=== PATIENT | female | born 1975 | race Caucasian/White ===

== ENCOUNTER 2017-07-12 08:22 | Day surgery (SDC) | payer OTHER ==
--- NOTE | 2017-07-04 16:09 | HP ---
PREOP HISTORY AND PHYSICAL: DATE OF SURGERY: 07/12/17 [facility] CHIEF COMPLAINT: Numbness and tingling in the left hand. HISTORY OF PRESENT ILLNESS: Mikayla is a 41-year-old woman who has numbness and tingling in the median nerve distribution of her left hand for the past year, but recently getting worse. She recently had a nerve conduction study done by Dr. Montoya who diagnosed her with left carpal tunnel syndrome. She presents for a left carpal tunnel release. PAST MEDICAL HISTORY: Positive for history of spina bifida. PAST SURGICAL HISTORY: Appendectomy, tonsillectomy, and spinal surgery as an . MEDICATIONS: 1. Medrol 4 mg as needed. 2. Gabapentin 900 mg p.o. t.i.d. 3. Amitriptyline 50 mg p.o. q.h.s. 2 pills. 4. Baclofen 20 mg 1 p.o. t.i.d. 5. Aleve 440 mg p.o. b.i.d. p.r.n. ALLERGIES: PENICILLIN, RED DYE, and BENADRYL. FAMILY HISTORY: Peripheral vascular disease, congestive heart failure, COPD, schizophrenia, and heart disease. SOCIAL HISTORY: She is unemployed. She admits to tobacco use. Rarely consumes alcohol. Does not regularly exercise. REVIEW OF SYSTEMS: Positive for cough, sore throat, fever and chills from a recent upper respiratory infection, diarrhea, chronic back pain, weakness, fatigue. Otherwise, negative for cephalic, cardiovascular, respiratory, gastrointestinal, genitourinary, other musculoskeletal, skin, neurologic, endocrine, and hematologic symptoms. PHYSICAL EXAMINATION GENERAL: She is a healthy-appearing and very pleasant woman in minimal distress at rest. VITAL SIGNS: She is 5 feet 4 inches, weighs 139 pounds, pulse 80, blood pressure 122/82, and temperature is 97. HEENT: Exam is unremarkable except for some poor dentition. She has some mild pain with range of motion of her neck. She has concentric eye movements. LUNGS: Clear to auscultation. Good inspiratory effort. No wheezing. CARDIAC: Regular rate and rhythm without murmur. PERIPHERAL VASCULAR: She has palpable pulses and no peripheral edema. EXTREMITIES: She has a positive Tinel's sign of the median nerve at the wrist. Some weakness with thumb abduction. Slight thenar wasting. She has good range of motion of her wrist. NEUROLOGIC: She is alert and oriented without focal deficits. IMPRESSION: Left carpal tunnel syndrome. PLAN: Left carpal tunnel release. The surgical procedure, risks and benefits were explained to the patient today and she agrees to proceed. I will see her back in followup in approximately 10 days postop. [id number]/[facility] #: [id number] MTDD
[~2017-07-12 08:22] MED LIST: Acetaminophen TAB* 325 MG PO PRN; Buffered Lidocaine 0.9% SYRIN* 5 ML/SYR SYRINGE INTRADERM ONE; HYDROcodone/ACETAMIN 5-325 MG* 1 TAB PO PRN; Naloxone* 0.4 MG/ML 1 ML VIAL IV PRN; Ondansetron INJ* 2 MG/ML VIAL IV PRN
[2017-07-12] MEDS ORDERED: Midazolam* 1 MG/ML 2 ML VIAL (2 MG) ONE (09:46)
[2017-07-12] MEDS ORDERED: fentaNYL* 50 MCG/ML 2 ML VIAL (100 MCG VIAL) ONE (09:46)
[2017-07-12] MEDS ORDERED: Propofol* 10 MG/ML 20 ML BTL IV PUSH ONE (10:10)
[2017-07-12] MEDS ORDERED: Lidocaine 2% PF * 5 ML VIAL ONE (10:10)
[2017-07-12] MEDS ORDERED: Ketorolac INJ* 30 MG/ML 1 ML VIAL ONE (10:10)
[2017-07-12 10:52] VITALS: BP 112/82
--- NOTE | 2017-07-12 13:27 | OP ---
DATE OF OPERATION: 07/12/17 [facility] DATE OF : 73 SURGEON: Tish Joyner MD [employer] CONSULTANT: VICKEY Read ANESTHESIA: Local MAC. PRE-OP DIAGNOSIS: Left carpal tunnel syndrome. POST-OP DIAGNOSIS: Left carpal tunnel syndrome. OPERATIVE PROCEDURE: Left carpal tunnel release. ESTIMATED BLOOD LOSS: Zero. TOURNIQUET TIME: About 5 minutes. INDICATIONS FOR PROCEDURE: Mikayla is a 41-year-old female with numbness and tingling in the median nerve distribution of her left hand. She presents for left carpal tunnel release. DESCRIPTION OF PROCEDURE: The patient was brought to the operating room, was given a sedation anesthetic and a local infiltration 10 cc of 1% plain lidocaine in the palm of her left hand. The skin of her left hand and forearm was prepped and draped in the usual sterile fashion. The hand and forearm were exsanguinated and the tourniquet elevated to 250 mmHg. The longitudinal incision was made in the palm in line with the ring finger. We dissected sharply through the subcutaneous tissue down to the transverse carpal ligament. The ligament was divided sharply with the knife and then more proximally with the scissors. The nerve was dissected free from the surrounding tissue and there is an area of moderate compression at the mid portion of the ligament. The wound was irrigated, and the skin edges were reapproximated with 4-0 nylon suture. The wound was dressed with Xeroform, 4x4, Webril, and an Lauro wrap. The patient tolerated the procedure well, was brought to the recovery room in good condition. [id number]/[facility] #: [id number] [facility] HOSPITALBoy
== END 2017-07-12 11:00 | disposition home or self-care (01) ==
LOC: OREAST 08:22
PROVIDERS: ATTEND Orthopaedic Surgery
DX: G56.02 Carpal tunnel syndrome, left upper limb (principal); Z72.0 Tobacco use; Q05.9 Spina bifida, unspecified; G89.29 Other chronic pain; G50.1 Atypical facial pain; M54.2 Cervicalgia
CPT/HCPCS: J1885; J2250; J2704; J3010

== ENCOUNTER 2018-08-24 16:16 | Emergency (ER) | payer OTHER ==
[2018-08-24] MEDS ORDERED: Adenosine* 3 MG/ML VIAL IV PUSH ONE (16:29)
--- NOTE | 2018-08-24 16:34 | ED ---
HPI Chest Pain - HPI Summary HPI Summary: 42 yr old female with the complaint of chest pain onset of pain at 1030 am. The patient has had some palpitations. She has had SOB. She states she has had SVT before. The patient denies drug use recently. She states she used to use street drugs. She is a smoker. - History of Current Complaint Time Seen by Provider: 08/24/18 16:18 Hx Last Menstrual Period: has IUD - Allergy/Home Medications Allergies/Adverse Reactions: Allergies Allergy/AdvReac Type Severity Reaction Status Date / Time Penicillins Allergy Swelling Verified 05/13/18 07:01 red dye Allergy Unknown Verified 05/13/18 07:01 Reaction Details diphenhydramine AdvReac Palpitation Verified 05/13/18 07:01 [From Aide] s PMH/Surg Hx/FS Hx/Imm Hx Endocrine/Hematology History: Denies: Hx Diabetes Cardiovascular History: Denies: Hx Hypertension, Hx Pacemaker/ICD, Other Cardiovascular Problems/ Disorders Respiratory History: Denies: Other Respiratory Problems/Disorders GI History: Denies: Other GI Disorders History: Denies: Hx Renal Disease Musculoskeletal History: Reports: Hx Back Problems, Hx Tendonitis - left elbow Denies: Other Musculoskeletal History Sensory History: Denies: Hx Contacts or Glasses, Hx Hearing Aid Opthamlomology History: Denies: Hx Contacts or Glasses Neurological History: Reports: Hx Headaches, Other Neuro Impairments/Disorders - cervical fusion as a baby Psychiatric History: Denies: Hx Panic Disorder - Surgical History Surgery Procedure, Year, and Place: TUMORS REMOVED FROM SPINE 1974- [facility], cervical fusion. APPENDIX 1982-. TONSILS. carpal tunnel left, [place], [facility] [place] Anesthesia Reactions: No Infectious Disease History: Denies: Traveled Outside the [place] in Last 30 Days - N - Family History Known Family History: Positive: Hypertension, Diabetes - Social History Lives: With Family Alcohol Use: Rare Alcohol Amount: 1x month Substance Use Type: Reports: None Smoking Status (MU): Current Every Day Smoker Type: Cigarettes Amount Used/How Often: 1/2 pack a day for 6 years Length of Time of Smoking/Using Tobacco: 15 years Have You Smoked in the Last Year: Yes Review of Systems Constitutional: Negative Positive: Chest Pain Positive: Shortness Of Breath All Other Systems Reviewed And Are Negative: Yes Physical Exam Triage Information Reviewed: Yes Vital Signs Reviewed: Yes Appearance: Positive: Well-Appearing, No Pain Distress Skin: Positive: Warm, Skin Color Reflects Adequate Perfusion Head/Face: Positive: Normal Head/Face Inspection Eyes: Positive: EOMI, JOSI ENT: Positive: Normal ENT inspection Neck: Positive: Nontender Respiratory/Lung Sounds: Positive: Clear to Auscultation, Breath Sounds Present Cardiovascular: Positive: Tachycardia. Negative: Murmur Abdomen Description: Negative: Distended Musculoskeletal: Positive: Strength/ROM Intact. Negative: Edema Left, Edema Right Neurological: Positive: Sensory/Motor Intact, Alert, Oriented to Person Place, Time, CN Intact II-III, Normal Gait, Speech Normal Psychiatric: Positive: Normal Procedures - Procedure Summary Procedure Summary: Cardioversion: The patient was given 6 mg of IV adenosine rapid push. She was placed on 4 liters of [place] oxygen. The patient converted to sinus tachy at 110. She tolerated this well. Diagnostics - Laboratory Lab Statement: Any lab studies that have been ordered have been reviewed, and results considered in the medical decision making process. - EKG 08/24/18 Cardiac Rate: Tachycardia EKG Rhythm: SVT ST Segment: Normal Ectopy: None Chest Pain Course/Dx - Course Course Of Treatment: 42 yr old female with SVT. Adenosine ordered. Dr Bundy at [place] called and he is awaiting the patient in transfer. The patient converted with us giving 6mg of adenosine here in the urgent care to sinus tach 110. - Diagnoses Provider Diagnoses: SVT (supraventricular tachycardia) Discharge - Sign-Out/Discharge Documenting (check all that apply): Patient Departure All imaging exams completed and their final reports reviewed: No Studies - Discharge Plan Condition: Good Disposition: TRANS HIGHER LVL OF CARE FAC Referrals: Hina Washburn MD [Primary Care Provider] - - Billing Disposition and Condition Condition: GOOD Disposition: Trans Higher Lvl of Care Fac
[2018-08-24 16:48] VITALS: BP 92/70
== END 2018-08-24 16:45 | disposition short-term general hospital (02) ==
LOC: UCCORT 16:16
DX: I47.1 Supraventricular tachycardia (principal); F17.210 Nicotine dependence, cigarettes, uncomplicated
CPT/HCPCS: 93005; 99213; G0463; J0153

== ENCOUNTER 2019-06-29 08:41 | Emergency (ER) | payer OTHER ==
--- NOTE | 2019-06-29 09:19 | UC ---
[facility] HPI HPI Summary: 43 year old female presents to for telehealth appt. c/o non-productive, dry cough, intermittent fever- 98.4. States symptoms started Saturday. Has people that she knows are under quarantine after having covid testing, but no know positive contact. No fever but her temp is usually low. No wheezing or difficulty breathing or performing ADL's. No medicine prior to arrival. [facility] PMH Previously Healthy: Yes Endocrine/Hematology History: Denies: Hx Diabetes Cardiovascular History: Denies: Hx Hypertension, Hx Pacemaker/ICD, Other Cardiovascular Problems/ Disorders Respiratory History: Denies: Other Respiratory Problems/Disorders GI History: Denies: Other GI Disorders History: Denies: Hx Renal Disease Musculoskeletal History: Reports: Hx Back Problems, Hx Tendonitis - left elbow Denies: Other Musculoskeletal History Sensory History: Denies: Hx Contacts or Glasses, Hx Hearing Aid Opthamlomology History: Denies: Hx Contacts or Glasses Neurological History: Reports: Hx Headaches, Other Neuro Impairments/Disorders - cervical fusion as a baby Psychiatric History: Denies: Hx Panic Disorder - Cancer History Hx Hematologic Symptoms: No - Surgical History Surgery Procedure, Year, and Place: TUMORS REMOVED FROM SPINE 1975- [facility],. cervical fusion-43 yrs ago (NO METAL PER DR. LEAHY- USED PRIOR MRI). TONSILS. carpal tunnel left, 2018, [facility]. APPENDECTOMY. RIGHT TIGGER FINGER Hx Anesthesia Reactions: No Infectious Disease History: No - Family History Known Family History: Positive: Hypertension, Diabetes - Social History Alcohol Use: Occasionally Alcohol Amount: 1x month Substance Use Type: Reports: None Smoking Status (MU): Heavy Every Day Tobacco Smoker Type: Cigarettes Amount Used/How Often: 1/2 pack a day for 6 years Length of Time of Smoking/Using Tobacco: 15 years Have You Smoked in the Last Year: Yes [facility] ROS All Other Systems Reviewed And Are Negative: Yes Positive: Fatigue Positive: Cough. Negative: Shortness Of Breath Positive: Myalgia Positive: Headache. Negative: Weakness Psychological: Normal [facility] PE Appearance: Positive: Well-Appearing, Alert and Oriented, No Pain Distress, Well -Nourished Skin: Negative: Diaphoretic Eyes: Positive: Normal ENT: Positive: Hearing grossly normal Respiratory/Lung Sounds: Positive: Normal Respiratory Effort. Negative: Accessory Muscle Use, Respiratory Distress, Unable to Speak in Full Sentences Musculoskeletal: Positive: Normal Tone Neurological: Positive: Alert, Oriented to Person Place, Time Psychiatric: Positive: Normal Telehealth Course/Dx Assessment/Plan: Patient with dry cough but no SOB or fever but she is concerned she may have COVID. She wants to be tested for viral illness with swabs. Talking fine and no acute concerns noted during interview. She would like cough suppressant and proair incase she develops wheeze. She is aware of risks of telehealth and agree to plan and SE of meds. she is aware of symptoms worsen to go to ED Provider Diagnoses: Viral respiratory illness Telehealth Disposition Provider Recommendation for Treatment: Urgent Care Telehealth Visit: Patient Consented Verbally to Telehealth Visit Telehealth Patient Statement: The patient should understand that they are communicating with their provider via a secure communication platform and that all the same privacy and confidentiality rules apply. They will also be responsible for copayments or coinsurances that apply to any Telehealth visit. Patient Identifiers: 2 Patient Identifiers Verified for Telehealth Visit Telehealth Visit Start Time: 09:25 Telehealth Visit End Time: 09:40 Telehealth Provider Attestation: The above services were appropriate to provide in a Telehealth setting.
[2019-06-29 09:45] LABS: Influenza A Molecular Negative (Negative); Influenza B Molecular Negative (Negative)
--- NOTE | 2019-07-01 08:21 | UC ---
- Progress Note Progress Note: please call the pt. COVID19 undetected cont. with symptomatic treatment , may stop self Quarantine cont. with social distancing follow up as needed Course/Dx - Diagnoses Provider Diagnoses: Viral respiratory illness Discharge ED - Sign-Out/Discharge Documenting (check all that apply): Patient Departure All imaging exams completed and their final reports reviewed: No Studies - Discharge Plan Condition: Good Disposition: HOME Prescriptions: Albuterol inh POWDER (NF) [Proair Respiclick] 2 puff INH Q6HR PRN #1 mdi PRN Reason: cough or wheezing Benzonatate CAP* [Tessalon 100 MG CAP*] 100 mg PO TID PRN #20 cap PRN Reason: Cough Patient Education Materials: Viral Syndrome (ED) Forms: *Work Release Referrals: Hina Washburn MD [Primary Care Provider] - If Needed - Billing Disposition and Condition Condition: GOOD Disposition: Home
== END 2019-06-29 09:52 | disposition home or self-care (01) ==
LOC: UCCORT 08:41
DX: B34.9 Viral infection, unspecified (principal); R05 Cough; Z20.828 Contact with and (suspected) exposure to other viral communicable diseases; F17.210 Nicotine dependence, cigarettes, uncomplicated
CPT/HCPCS: 87635; 99211; G0463